=== PATIENT | female | born 1945 | race Caucasian/White ===

== ENCOUNTER 2023-03-19 13:17 | Outpatient (CLI) | payer OTHER | END 2023-03-19 13:19 | disposition home or self-care (01) | LOC: SONOGRAMA 13:17 | PROVIDERS: ATTEND Pathology Anatomic Pathology & Clinical Pathology | DX: C73 Malignant neoplasm of thyroid gland (principal); D34 Benign neoplasm of thyroid gland; E04.9 Nontoxic goiter, unspecified; E07.9 Disorder of thyroid, unspecified; D44.0 Neoplasm of uncertain behavior of thyroid gland ==